=== PATIENT | male | born 1990 | race Caucasian/White ===

== ENCOUNTER 2024-01-09 11:56 | Outpatient (CLI) | payer BC, SELFPAY ==
--- NOTE | ~2024-01-09 | US_ITS ---
EXAMINATION: US thyroid DATE: 01/09/2024 12:56 INDICATION: Goiter. TECHNIQUE: Multiple ultrasound images of the thyroid were obtained. COMPARISON: None. FINDINGS: The right thyroid lobe measures 5.9 x 1.9 x 1.6 cm. The left thyroid lobe measures 5.2 x 1.8 x 1.6 c m. There is normal echotexture and echogenicity throughout the thyroid gland. No discrete nodules id entified. Normal vascular flow is present. IMPRESSION: 1. Normal thyroid. Reviewed, dictated and finalized at location E. IMPRESSION: 1. Normal thyroid.
== END 2024-01-09 11:57 ==
PROVIDERS: PCP Emergency Medicine; Visit Provider Emergency Medicine
DX: E04.9 Nontoxic goiter, unspecified (principal)
CPT/HCPCS: 76536